=== PATIENT | female | born 1965 | race Two or more races ===

== ENCOUNTER 2020-03-18 17:33 | Emergency (ER) | payer OTHER ==
[~2020-03-18] VITALS: Ht 160 cm; Wt 78.9 kg
[2020-03-18] MEDS ORDERED: FOSAMAX70 MG PO (17:51)
== END 2020-03-18 22:58 | disposition home or self-care (01) ==
LOC: ER 17:33
DX: M54.2 Cervicalgia (principal); M60.852 Other myositis, left thigh; M54.42 Lumbago with sciatica, left side; M54.6 Pain in thoracic spine; M53.3 Sacrococcygeal disorders, not elsewhere classified